=== PATIENT | female | born 1995 | race Caucasian/White ===

== ENCOUNTER 2023-08-21 15:49 | Inpatient (IN) | payer BC, OTHER ==
[~2023-08-21 15:49] MED LIST: Lidocaine 1.5% with EPINEPHrine 1:200,000 5 ML Amp ONE
[2023-08-21] MEDS ORDERED: Calcium Carbonate 500 MG Tab.Chew PO PRN (15:50)
[2023-08-21] MEDS ORDERED: Lidocaine 1% 50 ML MDV INJECT PRN (15:50)
[2023-08-21] MEDS ORDERED: Sodium Chloride 0.9% 10 ML Syringe FLUSH PRN (15:50)
[2023-08-21] MEDS ORDERED: Famotidine 20 MG Tab PO PRN (15:50)
[2023-08-21] MEDS ORDERED: Oxytocin/Lactated Ringers 30 UNIT/500 ML BAG IV SCH (16:00)
[2023-08-21 16:17] LABS: BASOPHILS PERCENT AUTO 0.3 % (0.0-1.0); EOSINOPHILS ABSOLUTE AUTO 0.1 K/mm3 (0.0-0.4); EOSINOPHILS PERCENT AUTO 0.9 % (0.0-6.0); HEMATOCRIT 38.5 % (37.0-47.0); IMMATURE GRAN ABSOLUTE AUTO 0.08 K/mm3 (0.00-0.05); IMMATURE GRAN PERCENT AUTO 0.7 % (0.0-0.4); LYMPHOCYTES ABSOLUTE AUTO 2.1 K/mm3 (1.0-4.8); LYMPHOCYTES PERCENT AUTO 18.7 % (24.0-44.0); MEAN CORPUSCULAR HEMOGLOBIN 30.2 pg (28.0-32.0); MEAN CORPUSCULAR HGB CONC 33.8 g/dl (32.0-36.0); MEAN CORPUSCULAR VOLUME 89.3 fl (83.0-99.0); MEAN PLATELET VOLUME 9.1 fl (9.4-12.3); MONOCYTES ABSOLUTE AUTO 0.9 K/mm3 (0.0-0.8); MONOCYTES PERCENT AUTO 7.8 % (0.0-8.0); NEUTROPHILS ABSOLUTE AUTO 8.1 K/mm3 (1.8-7.7); NEUTROPHILS PERCENT AUTO 71.6 % (41.0-71.0); PLATELET COUNT,PLT 207 K/mm3 (150-400); RED BLOOD CELL COUNT 4.31 M/mm3 (4.10-5.30); WHITE BLOOD CELL COUNT,WBC 11.26 K/mm3 (3.9-11.3)
[2023-08-21] MEDS: Misoprostol 25 MCG (1/4 of 100 MCG) Tab VAG ONE (17:09)
[2023-08-21] MEDS: Misoprostol 25 MCG (1/4 of 100 MCG) Tab VAG PRN (21:08)
[2023-08-21] MEDS: Sodium Chloride 0.9% 10 ML Syringe FLUSH SCH (21:08)
[2023-08-22] MEDS: Lactated Ringers 1,000 ML IV SCH (02:13)
[2023-08-22] MEDS: Nalbuphine 10 MG/ML Syringe IVPUSH PRN (02:27)
[2023-08-22] MEDS: Oxytocin/Lactated Ringers 30 UNIT/500 ML BAG IV SCH (07:19)
[2023-08-22] MEDS: Ondansetron 4 MG/2 ML SDV IVPUSH PRN (07:37)
[2023-08-22] MEDS ORDERED: ePHEDrine 50 MG/ML SDV IVPUSH PRN ×2 (16:53→21:46)
[2023-08-22] MEDS ORDERED: diphenhydrAMINE 50 MG/ML SDV IVPUSH PRN ×3 (16:53→21:46)
[2023-08-22] MEDS: fentaNYL 100 MCG/2 ML SDV EPIDUR PRN (17:13)
[2023-08-22] MEDS: Bupivacaine/fentaNYL/NS 100 ML Bag EPIDUR PRN (17:13)
[2023-08-22] MEDS: Citric Acid/Sodium Citrate Solution 30 ML Cup PO ONE (19:51)
[2023-08-22] MEDS: Metoclopramide 10 MG/2 ML SDV IVPUSH ONE (19:54)
[2023-08-22] MEDS: Azithromycin 500 MG in Sodium Chloride 0.9% 250 ML IV ONE (19:56)
[2023-08-22] MEDS ORDERED: ceFAZolin 2 GM Vial ONE (20:10)
[2023-08-22] MEDS ORDERED: Methylergonovine 0.2 MG/1 ML Amp ONE (20:27)
[2023-08-22] MEDS ORDERED: Ondansetron 4 MG/2 ML SDV ONE (20:35)
[2023-08-22] MEDS ORDERED: Phenylephrine 1% 10 MG/ML SDV ONE (20:36)
[2023-08-22] MEDS ORDERED: Meperidine 50 MG/ML Vial IVPUSH PRN (21:00)
[2023-08-22] MEDS ORDERED: fentaNYL 100 MCG/2 ML SDV IVPUSH PRN (21:00)
[2023-08-22] MEDS ORDERED: Ondansetron 4 MG/2 ML SDV IVPUSH PRN (21:00)
[2023-08-22] MEDS ORDERED: Acetaminophen/oxyCODONE 325-5 MG Tab PO PRN (21:46)
[2023-08-22] MEDS ORDERED: Sodium Chloride 0.9% 10 ML Syringe FLUSH PRN (21:46)
[2023-08-22] MEDS ORDERED: Naloxone 0.4 MG/ML SDV IVPUSH PRN (21:46)
[2023-08-22] MEDS ORDERED: Ondansetron 4 MG/2 ML SDV IV PRN (21:46)
[2023-08-22] MEDS: Ketorolac 30 MG/ML SDV IVPUSH SCH (22:31)
[2023-08-22] MEDS: Dextrose 5%-Lactated Ringers 1,000 ML IV SCH (23:00)
[2023-08-23] MEDS: Acetaminophen/oxyCODONE 325-5 MG Tab PO PRN (00:51)
[2023-08-23] MEDS: ceFAZolin 2 GM in Sodium Chloride 0.9% 50 ML IV ONE (10:36)
[2023-08-23 15:58] LABS: HEMATOCRIT 31.2 % (37.0-47.0); HEMOGLOBIN 10.4 gm/dl (12.0-16.0); MEAN CORPUSCULAR HEMOGLOBIN 30.1 pg (28.0-32.0); MEAN CORPUSCULAR HGB CONC 33.3 g/dl (32.0-36.0); MEAN CORPUSCULAR VOLUME 90.4 fl (83.0-99.0); MEAN PLATELET VOLUME 8.8 fl (9.4-12.3); PLATELET COUNT,PLT 189 K/mm3 (150-400); RED BLOOD CELL COUNT 3.45 M/mm3 (4.10-5.30); WHITE BLOOD CELL COUNT,WBC 13.15 K/mm3 (3.9-11.3)
[2023-08-23] MEDS: Ibuprofen 600 MG Tab PO SCH (16:08)
[2023-08-23] MEDS: Docusate Sodium 100 MG Cap PO PRN (20:09)
== END 2023-08-24 13:10 | disposition home or self-care (01) | DRG 540 ==
LOC: JD.OB 15:49 → OBSVTOIN 08-22 20:20 → JD.OB 08-22 20:21
PROVIDERS: ADMIT Obstetrics & Gynecology; ATTEND Obstetrics & Gynecology
PROC: 3E0R3BZ Introduction of Anesthetic Agent into Spinal Canal, Percutaneous Approach (ICD-10-PCS; 2023-08-22)
PROC: 00HU33Z Insertion of Infusion Device into Spinal Canal, Percutaneous Approach (ICD-10-PCS; 2023-08-22)
PROC: 10H07YZ Insertion of Other Device into Products of Conception, Via Natural or Artificial Opening (ICD-10-PCS; 2023-08-22)
PROC: 10907ZC Drainage of Amniotic Fluid, Therapeutic from Products of Conception, Via Natural or Artificial Opening (ICD-10-PCS; 2023-08-22)
PROC: 10D00Z1 Extraction of Products of Conception, Low, Open Approach (ICD-10-PCS; principal; 2023-08-22 20:00)
DX: O48.0 Post-term pregnancy (principal); O76 Abnormality in fetal heart rate and rhythm complicating labor and delivery; O62.2 Other uterine inertia; O33.3XX0 Maternal care for disproportion due to outlet contraction of pelvis, not applicable or unspecified; O77.0 Labor and delivery complicated by meconium in amniotic fluid; Z3A.41 41 weeks gestation of pregnancy; Z37.0 Single live birth; Z90.89 Acquired absence of other organs
CPT/HCPCS: 36415; 51702; 59025; 85025; 85027; 86592; 86850; 86900; 86901; A9270-GY; J0456; J0690; J1885; J2210; J2300; J2371; J2405; J2765; J3010; J3490; J7050; J7120; J7121; J7999

== ENCOUNTER 2025-02-06 00:19 | Inpatient (IN) | payer BC, OTHER ==
[~2025-02-06 00:19] MED LIST changes: +Lactated Ringers 1,000 ML IV SCH; -Lidocaine 1.5% with EPINEPHrine 1:200,000 5 ML Amp ONE; +Sodium Chloride 0.9% 10 ML Syringe FLUSH PRN; +Sodium Chloride 0.9% 10 ML Syringe FLUSH SCH
[2025-02-06 06:14] LABS: BASOPHILS ABSOLUTE AUTO 0.1 K/mm3 (0.0-0.2); BASOPHILS PERCENT AUTO 0.6 % (0.0-1.0); EOSINOPHILS ABSOLUTE AUTO 0.1 K/mm3 (0.0-0.4); EOSINOPHILS PERCENT AUTO 1.1 % (0.0-6.0); IMMATURE GRAN ABSOLUTE AUTO 0.08 K/mm3 (0.00-0.05); IMMATURE GRAN PERCENT AUTO 0.9 % (0.0-0.4); LYMPHOCYTES ABSOLUTE AUTO 2.5 K/mm3 (1.0-4.8); LYMPHOCYTES PERCENT AUTO 27.9 % (24.0-44.0); MEAN PLATELET VOLUME 8.7 fl (9.4-12.3); MONOCYTES ABSOLUTE AUTO 0.5 K/mm3 (0.0-0.8); MONOCYTES PERCENT AUTO 5.9 % (0.0-8.0); NEUTROPHILS ABSOLUTE AUTO 5.6 K/mm3 (1.8-7.7); NEUTROPHILS PERCENT AUTO 63.6 % (41.0-71.0); NRBC ABSOLUTE 0.00 (0.00-0.02); NRBC PERCENT 0.0 % (0.0-0.2); PLATELET COUNT,PLT 190 K/mm3 (150-400); RED BLOOD CELL COUNT 4.03 M/mm3 (4.10-5.30); WHITE BLOOD CELL COUNT,WBC 8.82 K/mm3 (3.9-11.3)
[2025-02-06] MEDS ORDERED: Oxytocin/0.9 % Sodium Chloride 30 UNIT/500 ML BAG IV ONE ×2 (06:30→07:30)
[2025-02-06] MEDS ORDERED: Morphine PF 10 MG/10 ML SDV ONE (06:32)
[2025-02-06] MEDS: Lactated Ringers 1,000 ML IV SCH (06:33)
[2025-02-06] MEDS ORDERED: Ketorolac 30 MG/ML SDV ONE (06:37)
[2025-02-06] MEDS: Citric Acid/Sodium Citrate Solution 30 ML Cup PO ONE (06:54)
[2025-02-06] MEDS ORDERED: ePHEDrine 50 MG/ML SDV ONE (07:10)
[2025-02-06] MEDS ORDERED: Lactated Ringers 1,000 ML ONE (07:19)
[2025-02-06] MEDS ORDERED: Phenylephrine 1% 10 MG/ML SDV ONE (07:53)
[2025-02-06] MEDS ORDERED: Oxytocin/0.9 % Sodium Chloride 30 UNIT/500 ML BAG IV SCH (08:00)
[2025-02-06] MEDS ORDERED: Ondansetron 4 MG/2 ML SDV IVPUSH PRN (08:08)
[2025-02-06] MEDS ORDERED: fentaNYL 100 MCG/2 ML SDV IVPUSH PRN (08:08)
[2025-02-06] MEDS ORDERED: diphenhydrAMINE 50 MG/ML SDV IVPUSH PRN ×2 (08:08→10:07)
[2025-02-06] MEDS ORDERED: Sodium Chloride 0.9% 10 ML Syringe FLUSH SCH (09:00)
[2025-02-06] MEDS ORDERED: Naloxone 0.4 MG/ML SDV IVPUSH PRN (10:07)
[2025-02-06] MEDS ORDERED: ePHEDrine 50 MG/ML SDV IVPUSH PRN (10:07)
[2025-02-06] MEDS: Ketorolac 30 MG/ML SDV IVPUSH SCH (13:53)
[2025-02-07 05:41] LABS: MEAN PLATELET VOLUME 8.8 fl (9.4-12.3); NRBC ABSOLUTE 0.00 (0.00-0.02); NRBC PERCENT 0.0 % (0.0-0.2); PLATELET COUNT,PLT 166 K/mm3 (150-400); RED BLOOD CELL COUNT 3.30 M/mm3 (4.10-5.30); WHITE BLOOD CELL COUNT,WBC 8.63 K/mm3 (3.9-11.3)
== END 2025-02-08 12:47 | disposition home or self-care (01) | DRG 788 ==
LOC: PREOBSVTOIN 00:19 → JD.OB 05:31 → INTOOBSV 05:31 → EDSTATUS 07:30 → OBSVTOIN 08:03
PROVIDERS: ADMIT Obstetrics & Gynecology; ATTEND Obstetrics & Gynecology
PROC: 10D00Z1 Extraction of Products of Conception, Low, Open Approach (ICD-10-PCS; principal; 2025-02-06 07:30)
DX: O34.211 Maternal care for low transverse scar from previous cesarean delivery (principal); Z3A.41 41 weeks gestation of pregnancy; Z37.0 Single live birth; O48.0 Post-term pregnancy
CPT/HCPCS: 01961; 36415; 36600; 59025; 85025; 85027; 86592; 86850; 86900; 86901; 94762; A9270-GY; J0690; J1885; J2274; J2371; J2765; J3490; J7120; J7121; J7999